=== PATIENT | female | born 1965 | race Caucasian/White ===

== ENCOUNTER 2018-12-08 06:10 | Day surgery (SDC) | payer SELFPAY ==
[~2018-12-08 06:10] MED LIST: Buffered Lidocaine 0.9% SYRIN* 5 ML/SYR SYRINGE INTRADERM ONE; Lactated Ringers 1000 ML Bag* 1,000 ML IV SCH
[2018-12-08] MEDS ORDERED: Dexamethasone IV* 4 MG/ML 1 ML (4 MG) ONE (07:12)
[2018-12-08] MEDS ORDERED: Scopolamine 1.5 mg* PATCH ONE (07:12)
[2018-12-08] MEDS ORDERED: Ondansetron INJ* 2 MG/ML VIAL ONE (07:12)
[2018-12-08] MEDS ORDERED: ceFAZolin 2 GM PREMIX in ORs 2 GM/50 ML BAG IVPB ONE (07:13)
[2018-12-08] MEDS ORDERED: Midazolam* 1 MG/ML 2 ML VIAL (2 MG) ONE (07:37)
[2018-12-08] MEDS ORDERED: fentaNYL* 50 MCG/ML 2 ML VIAL (100 MCG VIAL) ONE ×2 (07:37→09:56)
[2018-12-08] MEDS ORDERED: Methylene Blue 0.5 %* 50 MG/10 ML AMP IV ONE (08:33)
[2018-12-08] MEDS ORDERED: Bupivacaine 0.25% SDV PF* 10 ML VIAL INJ ONE (08:33)
[2018-12-08] MEDS ORDERED: Lidocaine 2% PF* 10 ML AMP ONE ×2 (08:33→08:46)
[2018-12-08] MEDS ORDERED: EPINEPHRINE 1 MG/ML 1 ML VIAL ONE (08:33)
[2018-12-08] MEDS ORDERED: Sodium Bicarbonate 8.4% SYR* 10 ML SYRINGE ONE (08:34)
[2018-12-08] MEDS ORDERED: Lidocaine 2% PF * 5 ML VIAL ONE (09:18)
[2018-12-08] MEDS ORDERED: Propofol* 10 MG/ML 20 ML BTL ONE (09:18)
[2018-12-08] MEDS ORDERED: Acetaminophen TAB* 325 MG PO PRN (09:38)
[2018-12-08] MEDS ORDERED: Naloxone* 0.4 MG/ML 1 ML VIAL IV PRN (09:38)
[2018-12-08 12:56] VITALS: BP 122/76
== END 2018-12-08 12:56 | disposition home or self-care (01) ==
LOC: OR 06:10
PROVIDERS: ATTEND Plastic Surgery
DX: E65 Localized adiposity (principal); J45.909 Unspecified asthma, uncomplicated
CPT/HCPCS: 81025; A9270-GY; J0690; J1100; J2001; J2250; J2405; J2704; J3010; J3490